=== PATIENT | female | born 1955 | race Caucasian/White ===

== ENCOUNTER 2017-07-19 21:08 | Inpatient (IN) | payer OTHER ==
[~2017-07-19] VITALS: Ht 175.3 cm; Wt 97.3 kg
[~2017-07-19 21:08] MED LIST: ADVIL200 M1 PO; BACTRIM DS TAB1 EACH PO; CYCLOBENZAPRINE5 MG PO; EFFEXOR XR150 MG PO; EFFEXOR XR75 MG PO; EXCEDRIN MIGRA1 EAC2 PO; LANTUS100 UNITS/ SUB-Q; LYRICA50 MG PO; LYRICA75 MG PO; METFORMIN HCL1000 MG PO; NORCO 10-325 T1 EACH PO; NOVOLIN R100 UNIT/1 INJ; NOVOLOG100 UNITS/ SUB-Q; VICODIN 5-3001 EACH PO
[2017-07-19] MEDS ORDERED: K-TAB ER20 MEQ PO (21:19)
[2017-07-19] MEDS ORDERED: LASIX20 MG PO (21:19)
[2017-07-20] MEDS ORDERED: NEURONTIN100 MG PO (01:32)
--- NOTE | 2017-07-20 19:00 | EKG ---
[facility] [address] [facility] [facility] [place] [address] Signed Sinus tachycardia Possible Left atrial enlargement Left axis deviation Anterolateral infarct , age undetermined Abnormal ECG No previous ECGs available Confirmed by ISIS SLOAN MD ([id number]) on 07/20/2017 7:00:38 PM Electronically Signed By: ISIS SLOAN MD 07/20/17 1900 PATIENT NAME: YOMAIRA TALLEY Electrocardiogram DATE OF : 53 PHYSICIAN: ISIS SLOAN MD REPORT #: [id number] REPORT IS CONFIDENTIAL AND NOT TO BE RELEASED WITHOUT AUTHORIZATION
[2017-07-23] MEDS ORDERED: CLEOCIN HCL300 MG PO (10:50)
[2017-07-23] MEDS ORDERED: KLOR-CON M1010 MEQ PO (10:51)
[2017-07-23] MEDS ORDERED: VENTOLIN HFA18 GM INH (10:52)
[2017-07-26] MEDS ORDERED: NOVOLOG100 UNIT/2 SUB-Q ×2 (21:16)
[2017-07-26] MEDS ORDERED: POTASSIUM CHLO20 ME1 PO (21:16)
[2017-07-26] MEDS ORDERED: LASIX40 MG PO (21:16)
[2017-07-26] MEDS ORDERED: CARVEDILOL3.125 MG PO (21:16)
[2017-07-27] MEDS ORDERED: ASPIRIN EC81 MG PO (10:07)
== END 2017-07-27 11:25 | disposition home or self-care (01) | DRG 292 ==
LOC: ED 21:08 → MS 07-20 00:42
PROVIDERS: ADMIT Internal Medicine
DX: I11.0 Hypertensive heart disease with heart failure (principal); N17.9 Acute kidney failure, unspecified; I50.23 Acute on chronic systolic (congestive) heart failure; E11.65 Type 2 diabetes mellitus with hyperglycemia; I35.0 Nonrheumatic aortic (valve) stenosis; E11.40 Type 2 diabetes mellitus with diabetic neuropathy, unspecified; E78.5 Hyperlipidemia, unspecified; F39 Unspecified mood [affective] disorder; F15.10 Other stimulant abuse, uncomplicated; Z79.4 Long term (current) use of insulin
CPT/HCPCS: 36415; 71020; 71260; 76770; 80048; 80053; 81001; 82570; 83735; 83880; 84300; 84484; 84540; 85025; 85379; 85610; 85730; 93005; 93010; 93306; 94640; 96374; 99285; J3475; Q0177; Q9967

== ENCOUNTER 2017-08-06 16:16 | Emergency (ER) | payer OTHER ==
[~2017-08-06] VITALS: Ht 175.3 cm; Wt 97.2 kg
[~2017-08-06 16:16] MED LIST changes: +ASPIRIN EC81 MG PO; +CARVEDILOL3.125 MG PO; +CLEOCIN HCL300 MG PO; +K-TAB ER20 MEQ PO; +KLOR-CON M1010 MEQ PO; +LASIX20 MG PO; +LASIX40 MG PO; +NEURONTIN100 MG PO; +NOVOLOG100 UNIT/2 SUB-Q; +POTASSIUM CHLO20 ME1 PO; +VENTOLIN HFA18 GM INH
[2017-08-06] MEDS ORDERED: BACTRIM DS TAB1 EACH PO (20:17)
[2017-08-06] MEDS ORDERED: CEPHALEXIN500 MG PO (20:17)
== END 2017-08-06 20:52 | disposition home or self-care (01) ==
LOC: ED 16:16
DX: L03.115 Cellulitis of right lower limb (principal); E11.9 Type 2 diabetes mellitus without complications; F32.9 Major depressive disorder, single episode, unspecified; Z90.49 Acquired absence of other specified parts of digestive tract; Z91.041 Radiographic dye allergy status; Z79.4 Long term (current) use of insulin; Z79.82 Long term (current) use of aspirin; Z79.899 Other long term (current) drug therapy; Z86.711 Personal history of pulmonary embolism
CPT/HCPCS: 80053; 81001; 83605; 83880; 85025; 96365; 96375; 99283; J0696; J3370

== ENCOUNTER 2018-08-24 23:42 | Emergency (ER) | payer OTHER ==
[~2018-08-24] VITALS: Ht 175.3 cm; Wt 99.9 kg
[~2018-08-24 23:42] MED LIST changes: +CEPHALEXIN500 MG PO
[2018-08-25] MEDS ORDERED: PERCOCET 5-3251 EACH PO (01:10)
== END 2018-08-25 01:59 | disposition home or self-care (01) ==
LOC: ED 23:42
DX: S42.211A Unspecified displaced fracture of surgical neck of right humerus, initial encounter for closed fracture (principal); E11.9 Type 2 diabetes mellitus without complications; F32.9 Major depressive disorder, single episode, unspecified; I50.9 Heart failure, unspecified; Z86.711 Personal history of pulmonary embolism; Z86.718 Personal history of other venous thrombosis and embolism; Z91.041 Radiographic dye allergy status; Z79.4 Long term (current) use of insulin; Z79.82 Long term (current) use of aspirin; Z79.899 Other long term (current) drug therapy; W01.0XXA Fall on same level from slipping, tripping and stumbling without subsequent striking against object, initial encounter
CPT/HCPCS: 73030; 96374; 96375; 99283-25; J1170; J2270; J2405

== ENCOUNTER 2018-11-25 11:59 | Emergency (ER) | payer OTHER ==
[~2018-11-25] VITALS: Ht 175.3 cm; Wt 99.9 kg
[~2018-11-25 11:59] MED LIST changes: +PERCOCET 5-3251 EACH PO
--- OUTSIDE RECORDS SUMMARY | 2018-11-25 12:02 | XMS ---
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 [place] VISIT COUNT (12 MO.) 2 [facility] Rendon TOTAL 2 NOTE: Visits indicate total known visits. ED/UCC VISIT TRACKING (12 MO.) 11/25/2018 11:59 [facility] [place] TYPE: Emergency COMPLAINT: - CHEST PRESSURE/SHORTNESS OF BREATH 08/24/2018 23:[address] 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 - [facility] (current) use of aspirin - Unspecified displaced fracture of surgical neck of right humerus, initial encounter for closed fracture - Personal history of other venous thrombosis and embolism - Pain in right knee - Heart failure, unspecified - Major depressive disorder, single episode, unspecified - Fall on same level from slipping, tripping and stumbling without subsequent striking against object, initial encounter - Radiographic dye allergy status - Type 2 diabetes mellitus without complications INPATIENT VISIT TRACKING (12 MO.) No inpatient visits to display in this time frame [email or web address]
[2018-11-25] MEDS ORDERED: NOVOLOG MI100 UNIT/2 SUB-Q (12:23)
[2018-11-25] MEDS ORDERED: LEVEMIR FL100 UNIT/2 SQ (12:24)
[2018-11-25] MEDS ORDERED: MAGNESIUM250 MG PO (15:26)
--- NOTE | 2018-11-26 23:18 | EKG ---
[facility] [address] [place] [address] Signed Sinus rhythm with frequent premature ventricular complexes and premature atrial complexes Left axis deviation Left ventricular hypertrophy with QRS widening and repolarization abnormality Cannot rule out Septal infarct (cited on or before 19-JUL-2017) Abnormal ECG When compared with ECG of 19-JUL-2017 21:16, premature ventricular complexes are now present premature atrial complexes are now present Questionable change in initial forces of Anterolateral leads Confirmed by PADMAJA CAMACHO DO ([id number]) on 11/26/2018 11:18:43 PM Electronically Signed By: PADMAJA CAMACHO DO 11/26/18 2318 PATIENT NAME: YOMAIRA TALLEY Electrocardiogram DATE OF : 53 PHYSICIAN: PADMAJA CAMACHO DO REPORT #: [id number] REPORT IS CONFIDENTIAL AND NOT TO BE RELEASED WITHOUT AUTHORIZATION
== END 2018-11-25 15:48 | disposition home or self-care (01) ==
LOC: ED 11:59
DX: E87.6 Hypokalemia (principal); E83.42 Hypomagnesemia; E11.9 Type 2 diabetes mellitus without complications; F32.9 Major depressive disorder, single episode, unspecified; I50.9 Heart failure, unspecified; Z91.041 Radiographic dye allergy status; Z79.899 Other long term (current) drug therapy; Z79.82 Long term (current) use of aspirin
CPT/HCPCS: 71046; 80053; 83735; 83880; 84484; 85025; 93005; 93010; 96365; 99285-25; J3475

== ENCOUNTER 2019-04-24 15:58 | Emergency (ER) | payer OTHER ==
[~2019-04-24] VITALS: Ht 175.3 cm; Wt 99.9 kg
[~2019-04-24 15:58] MED LIST changes: +LEVEMIR FL100 UNIT/2 SQ; +MAGNESIUM250 MG PO; +NOVOLOG MI100 UNIT/2 SUB-Q
--- OUTSIDE RECORDS SUMMARY | 2019-04-24 16:02 | XMS ---
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 Care History Medical/Surgical 11/26/2018 [facility] MADE- FOR FURTHER HELP- WITH DIRECTOR OF RESTAURANTS TO HELP PATIENT. [place] VISIT COUNT (12 MO.) 3 [facility] TOTAL 3 NOTE: Visits indicate total known visits. 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
[2019-04-24] MEDS ORDERED: KEFLEX500 MG PO (18:12)
[2019-04-24] MEDS ORDERED: BACTRIM DS TAB1 EACH PO (18:12)
== END 2019-04-24 18:31 | disposition home or self-care (01) ==
LOC: ED 15:58
DX: L03.116 Cellulitis of left lower limb (principal); E11.9 Type 2 diabetes mellitus without complications; I50.9 Heart failure, unspecified; Z91.041 Radiographic dye allergy status; Z86.711 Personal history of pulmonary embolism; Z79.4 Long term (current) use of insulin; Z79.82 Long term (current) use of aspirin; Z79.899 Other long term (current) drug therapy
CPT/HCPCS: 99283

== ENCOUNTER 2019-07-12 18:20 | Emergency (ER) | payer MEDICARE, OTHER ==
[~2019-07-12] VITALS: Ht 175.3 cm; Wt 99.9 kg
[~2019-07-12 18:20] MED LIST changes: +KEFLEX500 MG PO
--- OUTSIDE RECORDS SUMMARY | 2019-07-12 18:22 | XMS ---
PreManage Notification: YOMAIRA TALLEY Security Ac/Dc Rewinder Events No recent Security Events currently on file CRITERIA MET - [facility] [place] [facility] CARE PROVIDERS MAMIE BISWAS Physician 11/26/2018-Current PHONE: [phone] DG TALLEY Primary Care Current PHONE: [phone] PARAMJIT Marie Primary Care Current PHONE: [phone] Lucy Webster Current PHONE: Unknown [facility] Other [facility] PHONE: Unknown Maria Guadalupe has no Care Guidelines for this patient. Care History Medical/Surgical 11/26/2018 [facility] MADE- FOR FURTHER HELP- WITH LOG DECK TENDER TO HELP PATIENT. [place] VISIT COUNT (12 MO.) 4 [facility] TOTAL 4 NOTE: Visits indicate total known visits. ED/UCC VISIT TRACKING (12 MO.) 07/12/2019 18:20 [facility] [place] TYPE: Emergency COMPLAINT: - CHEST PAIN 04/24/2019 15:[address] [facility] [place] TYPE: Emergency COMPLAINT: - POSSIBLE LEG INFECTION DIAGNOSES: - Heart failure, unspecified - Radiographic dye allergy status - assisted (current) use of aspirin - Personal history of pulmonary embolism - Other halfway (current) drug therapy - Pain in right lower leg - 1 Type 2 diabetes mellitus without complications - Cellulitis of left lower limb - assisted (current) use of insulin 11/25/2018 11:59 [facility] [place] [place] COMPLAINT: - CHEST PRESSURE/SHORTNESS OF BREATH DIAGNOSES: - 1 Type 2 diabetes mellitus without complications - Heart failure, unspecified - Other chest pain - Hypomagnesemia - Radiographic dye allergy status - Hypokalemia - assisted (current) use of aspirin - Major depressive disorder, single episode, unspecified - Other halfway (current) drug therapy 08/24/2018 23:[address] 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
--- NOTE | 2019-07-14 12:51 | EKG ---
[facility] [address] [facility] [place] [address] Signed Sinus rhythm with frequent premature ventricular complexes in a pattern of bigeminy Left axis deviation Left bundle branch block Cannot rule out septal infarct Abnormal ECG When compared with ECG of 25-NOV-2018 12:08, premature atrial complexes are no longer present Left bundle branch block is now present Confirmed by ISIS SLOAN MD ([id number]) on 07/14/2019 12:50:54 PM Electronically Signed By: ISIS SLOAN MD 07/14/19 1251 PATIENT NAME: YOMAIRA TALLEY Electrocardiogram DATE OF : 53 PHYSICIAN: ISIS SLOAN MD REPORT #: [id number] REPORT IS CONFIDENTIAL AND NOT TO BE RELEASED WITHOUT AUTHORIZATION
== END 2019-07-12 23:06 | disposition short-term general hospital (02) ==
LOC: ED 18:20
DX: I20.0 Unstable angina (principal); E11.9 Type 2 diabetes mellitus without complications; F32.9 Major depressive disorder, single episode, unspecified; I50.9 Heart failure, unspecified; Z91.041 Radiographic dye allergy status; Z79.899 Other long term (current) drug therapy; Z79.4 Long term (current) use of insulin
CPT/HCPCS: 71045; 80053; 83735; 84484; 85025; 85610; 85730; 93005; 93010; 96374; 96375; 96376; 99285-25; J1644; J1815; J2270; J2405

== ENCOUNTER 2020-03-11 20:12 | Emergency (ER) | payer MEDICARE, OTHER ==
[~2020-03-11] VITALS: Ht 175.3 cm; Wt 95.4 kg
--- OUTSIDE RECORDS SUMMARY | 2020-03-11 20:14 | XMS ---
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 Care History Medical/Surgical 11/26/2018 [facility] - [place] CASE MANAGEMENT REFERRAL MADE- FOR FURTHER HELP- WITH RISK DEVELOPER TO HELP PATIENT. [place] VISIT COUNT (12 MO.) 1 [facility] 4 [facility] TOTAL 5 NOTE: Visits indicate total known visits. ED/UCC VISIT TRACKING (12 MO.) 03/11/2020 20:12 [facility] [place] TYPE: Emergency COMPLAINT: - [facility] DIAGNOSES: - Bitten by dog, initial encounter - Open bite of left ear, initial encounter - Dog Bite(s) 07/17/2019 17:19 [facility] [place] TYPE: Emergency COMPLAINT: - DOG BITE DIAGNOSES: - USP (current) use of insulin - Open bite of left ear, initial encounter - Bitten by dog, initial encounter - Other correction (current) drug therapy - Type 2 diabetes mellitus with hyperglycemia - USP (current) use of aspirin - Heart failure, unspecified - Non-ST elevation (NSTEMI) myocardial infarction - Open bite of left ear, initial encounter - Radiographic dye allergy status 07/12/2019 18:20 [facility] [place] TYPE: Emergency COMPLAINT: - CHEST PAIN DIAGNOSES: - 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 - Other correction (current) drug therapy - Major depressive disorder, single episode, unspecified - Heart failure, unspecified - Unstable angina - Type 2 diabetes mellitus without complications - Radiographic dye allergy status - Chest pain, unspecified 04/24/2019 15:59 [facility] [place] TYPE: Emergency COMPLAINT: - POSSIBLE LEG INFECTION DIAGNOSES: - Heart failure, unspecified - Radiographic dye allergy status - USP (current) use of aspirin - Personal history of pulmonary embolism - Other correction (current) drug therapy - Pain in right lower leg - Type 2 diabetes mellitus without complications - Cellulitis of left lower limb - USP (current) use of insulin INPATIENT VISIT TRACKING (12 MO.) 07/13/2019 00:29 [facility] TYPE: Internal Medicine DIAGNOSES: - Type 2 diabetes mellitus with hyperglycemia - Non-ST elevation (NSTEMI) myocardial infarction - Other stimulant abuse, uncomplicated - Hyperlipidemia, unspecified - Unstable Angina - USP (current) use of insulin - Atherosclerotic heart disease of [place] coronary artery with [email or web address]
== END 2020-03-12 00:26 | disposition home or self-care (01) ==
LOC: ED 20:12
DX: K52.9 Noninfective gastroenteritis and colitis, unspecified (principal); E11.9 Type 2 diabetes mellitus without complications; F32.9 Major depressive disorder, single episode, unspecified; I50.9 Heart failure, unspecified; Z91.041 Radiographic dye allergy status; Z79.4 Long term (current) use of insulin
CPT/HCPCS: 80053; 81001; 83690; 83735; 85025; 96361; 96374; 96375; 96376; 99284-25; J2405; J2550; J2765; J7030

== ENCOUNTER 2020-03-23 19:10 | Emergency (ER) | payer MEDICARE, OTHER ==
[~2020-03-23] VITALS: Ht 175.3 cm; Wt 95.4 kg
--- OUTSIDE RECORDS SUMMARY | 2020-03-23 19:12 | XMS ---
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 Care History Medical/Surgical 11/26/2018 [facility] - [place] CASE MANAGEMENT REFERRAL MADE- FOR FURTHER HELP- WITH YEAST CULTURE DEVELOPER TO HELP PATIENT. [place] VISIT COUNT (12 MO.) 1 [place] [address] DANIEL Rendon TOTAL 6 NOTE: Visits indicate total known visits. ED/UCC VISIT TRACKING (12 MO.) 03/23/2020 19:11 [facility] [place] TYPE: Emergency COMPLAINT: - SWOLLEN/REDNESS IN BOTH FEET 03/11/2020 20:12 [facility] [place] TYPE: Emergency COMPLAINT: - VOMITING DIAGNOSES: - Nausea with vomiting, unspecified - Noninfective gastroenteritis and colitis, unspecified - Major depressive disorder, single episode, unspecified - Heart failure, unspecified - Radiographic dye allergy status - Type 2 diabetes mellitus without complications - assisted (current) use of insulin 07/17/2019 22:15 [facility] TYPE: Emergency DIAGNOSES: - Bitten by dog, initial encounter - Open bite of left ear, initial encounter - Dog Bite(s) 07/17/2019 17:19 [facility] TYPE: Emergency COMPLAINT: - DOG BITE DIAGNOSES: - assisted (current) use of insulin - Open bite of left ear, initial encounter - Bitten by dog, initial encounter - Other residential (current) drug therapy - Type 2 diabetes mellitus with hyperglycemia - assisted (current) use of aspirin - Heart failure, unspecified - Non-ST elevation (NSTEMI) myocardial infarction - Open bite of left ear, initial encounter - Radiographic dye allergy status 07/12/2019 18:20 [facility] TYPE: Emergency COMPLAINT: - CHEST PAIN DIAGNOSES: - assisted (current) use of insulin - 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 - Major depressive disorder, single episode, unspecified - Heart failure, unspecified - Unstable angina - Type 2 diabetes mellitus without complications - Radiographic dye allergy status - Chest pain, unspecified 04/24/2019 15:59 [facility] [place] TYPE: Emergency COMPLAINT: - POSSIBLE LEG INFECTION DIAGNOSES: - Heart failure, unspecified - Radiographic dye allergy status - 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 - Personal history of pulmonary embolism - Other residential (current) drug therapy - Pain in right lower leg - Type 2 diabetes mellitus without complications - Cellulitis of left lower limb - assisted (current) use of insulin INPATIENT VISIT TRACKING (12 MO.) 07/13/2019 00:29 [facility] TYPE: Internal Medicine DIAGNOSES: - Type 2 diabetes mellitus with hyperglycemia - Non-ST elevation (NSTEMI) myocardial infarction - Other stimulant abuse, uncomplicated - Hyperlipidemia, unspecified - Unstable Angina - 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
[2020-03-23] MEDS ORDERED: TORSEMIDE5 MG PO (19:34)
[2020-03-23] MEDS ORDERED: EFFEXOR XR150 MG PO (19:34)
[2020-03-23] MEDS ORDERED: NITROSTAT0.4 MG SL (19:35)
[2020-03-23] MEDS ORDERED: MAGNESIUM500 MG PO (19:35)
[2020-03-23] MEDS ORDERED: GABAPENTIN100 MG PO (19:35)
[2020-03-23] MEDS ORDERED: KEFLEX500 MG PO (21:00)
[2020-03-23] MEDS ORDERED: BACTRIM DS TAB1 EACH PO (21:00)
== END 2020-03-23 23:07 | disposition home or self-care (01) ==
LOC: ED 19:10
DX: L03.115 Cellulitis of right lower limb (principal); L03.116 Cellulitis of left lower limb; D72.829 Elevated white blood cell count, unspecified; R79.9 Abnormal finding of blood chemistry, unspecified; E11.9 Type 2 diabetes mellitus without complications; F32.9 Major depressive disorder, single episode, unspecified; I25.10 Atherosclerotic heart disease of native coronary artery without angina pectoris; I50.9 Heart failure, unspecified; Z91.041 Radiographic dye allergy status; Z79.899 Other long term (current) drug therapy; Z79.4 Long term (current) use of insulin
CPT/HCPCS: 73630; 80053; 85025; 96361; 96374; 99283-25; A9270; J3370; J7030; J7060

== ENCOUNTER 2020-09-06 16:31 | Emergency (ER) | payer MEDICARE, OTHER ==
[~2020-09-06] VITALS: Ht 175.3 cm; Wt 97.7 kg
[~2020-09-06 16:31] MED LIST changes: +GABAPENTIN100 MG PO; +MAGNESIUM500 MG PO; +NITROSTAT0.4 MG SL; +TORSEMIDE5 MG PO
[2020-09-06] MEDS ORDERED: BYDUREON B2 MG/0.85 (16:57)
[2020-09-06] MEDS ORDERED: K-TAB ER20 MEQ PO (19:39)
[2020-09-06] MEDS ORDERED: LASIX20 MG PO (19:39)
== END 2020-09-06 20:28 | disposition home or self-care (01) ==
LOC: ED 16:31
DX: I50.9 Heart failure, unspecified (principal); Z91.19 Patient's noncompliance with other medical treatment and regimen; E11.9 Type 2 diabetes mellitus without complications; Z91.041 Radiographic dye allergy status; Z79.899 Other long term (current) drug therapy; Z79.4 Long term (current) use of insulin
CPT/HCPCS: 80053; 83735; 83880; 85025; 96374; 96375; 99285-25; J1940; J3475

== ENCOUNTER 2020-09-19 05:12 | Emergency (ER) | payer MEDICARE, OTHER ==
[~2020-09-19] VITALS: Ht 175.3 cm; Wt 97.5 kg
[~2020-09-19 05:12] MED LIST changes: +BYDUREON B2 MG/0.85
--- OUTSIDE RECORDS SUMMARY | 2020-09-19 05:14 | XMS ---
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 Care History Medical/Surgical 03/24/2020 [facility] \T\middot;\T\nbsp; PATIENT WOULD BENEFIT FROM [facility]-PLEASE DISCUSS \T\middot;\T\nbsp; PLEASE CONTACT [facility]- IF PATIENT ACCEPTS SERVICES- [phone] \T\middot;\T\nbsp; [facility] CAN PROVIDE PATIENT WITH COIN PURSE FRAMER AND HELP WITH COMMUNITY RESOURCES 11/26/2018 [facility] - [place] CASE MANAGEMENT REFERRAL MADE- FOR FURTHER HELP- WITH RESTAURANT WORKER TO HELP PATIENTLazara Jenkins VISIT COUNT (12 MO.) 2 [facility] 6 NOTE: Visits indicate total known visits. 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 - Radiographic dye allergy status - Type 2 diabetes mellitus without complications - retirement (current) use of insulin - Patient's noncompliance with other medical treatment and regimen 03/25/2020 22:25 [facility] [place] TYPE: Emergency DIAGNOSES: - Cellulitis of left lower limb - BILAT FOOT INFECTION 03/23/2020 19:11 [facility] [place] TYPE: Emergency COMPLAINT: - SWOLLEN/REDNESS IN BOTH FEET DIAGNOSES: - Cellulitis of left lower limb - Atherosclerotic heart disease of [place] coronary artery without angina pectoris - 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 - Heart failure, unspecified - Radiographic dye allergy status - Elevated white blood cell count, unspecified - Type 2 diabetes mellitus without complications - Other senior living (current) drug therapy - Major depressive disorder, single episode, unspecified - Pain in right foot - Abnormal finding of blood chemistry, unspecified - Cellulitis of right lower limb 03/11/2020 20:12 [facility] [place] TYPE: Emergency COMPLAINT: - VOMITING DIAGNOSES: - Nausea with vomiting, unspecified - Noninfective gastroenteritis and colitis, unspecified - Major depressive disorder, single episode, unspecified - Heart failure, unspecified - Radiographic dye allergy status - Type 2 diabetes mellitus without complications - retirement (current) use of insulin INPATIENT VISIT TRACKING (12 MO.) No inpatient visits to display in this time frame [email or web address]
[2020-09-19] MEDS ORDERED: CLINDAMYCIN HC300 MG PO (05:21)
[2020-09-19] MEDS ORDERED: HYDROCODON-ACE1 EA10 PO (05:21)
== END 2020-09-19 08:40 | disposition short-term general hospital (02) ==
LOC: ED 05:12
DX: I99.8 Other disorder of circulatory system (principal); L03.115 Cellulitis of right lower limb; L03.116 Cellulitis of left lower limb; E11.621 Type 2 diabetes mellitus with foot ulcer; L97.519 Non-pressure chronic ulcer of other part of right foot with unspecified severity; I25.10 Atherosclerotic heart disease of native coronary artery without angina pectoris; I50.9 Heart failure, unspecified; Z20.822 Contact with and (suspected) exposure to COVID-19; Z79.899 Other long term (current) drug therapy; Z79.4 Long term (current) use of insulin
CPT/HCPCS: 80053; 81001; 83605; 85025; 93931; 93971; 99285-25; C9803; J1644; J2270; J3370; J7060; U0003

== ENCOUNTER 2021-01-14 15:19 | Inpatient (IN) | payer MEDICARE, OTHER, MEDICAID ==
[~2021-01-14] VITALS: Ht 175.3 cm; Wt 97.9 kg
[~2021-01-14 15:19] MED LIST changes: -BYDUREON B2 MG/0.85; +BYDUREON B2 MG/0.85 SUB-Q; +CLINDAMYCIN HC300 MG PO; +HYDROCODON-ACE1 EA10 PO
[2021-01-14] MEDS ORDERED: ELIQUIS5 MG PO (15:37)
[2021-01-14] MEDS ORDERED: HYDRALAZINE HCL10 MG PO (15:37)
[2021-01-14] MEDS ORDERED: METOPROLOL SUCC25 MG PO (15:37)
[2021-01-14] MEDS ORDERED: ISOSORBIDE DINI20 MG PO (15:38)
--- NOTE | 2021-01-14 19:59 | NUR ---
iSitting at beds edge. restless, fidgetty, follows instructions slow response. rapid hand movements. ffixating on le. On room air. flagyl started. Coop with admit questiona and assessment, tolerating liquids and crackers. denies needing to go to br. LE edema, scabs prsent open areas r toe, edema of bilat LE and anckle
--- NOTE | 2021-01-14 23:52 | NUR ---
pt very restless, dry heaving, moist skin, moaning, fidgety, CIWA score 8, medicated with Ativan 1mg po. reassured, redirectable. on O2 increased to 2L NC at this time, spot checks O2 90%, R24, P118, sats went up to 94% on 2L. continue to observe for s/sx drug withdrawal.
--- NOTE | 2021-01-15 01:40 | NUR ---
O2 on, resting, no distress, eyes closed. no c/o adverse reaction to abx. med effective
--- NOTE | 2021-01-15 02:43 | NUR ---
Up to br, voided, unsteady gait, O2 took off, back on, coop with assessment and vitals, c/o h/a, medicated , less fidgety, light diaphoresis head and face, fine hand tremors still present, no dry heaving, tolerating ice chips and fluids well. uses call light. pt continues to deny that she used drugs at all, not for several months now
--- NOTE | 2021-01-15 03:48 | NUR ---
RESTING, NO DISTRESS, EYES CLOSED, O2 2L NC, LIQUIDS AND CALL LIHGT AT HAND REACH, INVOLUNTARY HANDS TREMORS PRESENT
--- NOTE | 2021-01-15 05:58 | NUR ---
Pt on 2LNC,, currently resting, no distress, has received flagyl, cefepime, vancomycin abdx, tolerated well. 2SL. was medicated with percocet per c/o h/a and r leg pain. R leg red and warm to touch. has scrathced areas in different stages of heling, edematous, r rip of toe with opld scab. edema to L foot too. scabbed over areas over arm. L abd and both legs. . Was very fidgetty and anxious at begining of shift and mid way. CIWA score was 8, received ativan 1mg po. effective. pt denies doing drugs or drinking alcohol for several months. was very diaphoretic, irritable, could not thick. calmed down. Up to bsc at begining of shift walked w/o problems tender R leg. BSC was used later as she was bending down, not following instructions. fidgetty and impulsive, unsteady gait present at that time. 1-2pa. has voided QS. bed alarm on for sagety. cont to observe and elevate legs
[2021-01-15] MEDS ORDERED: TORSEMIDE20 MG PO (08:21)
[2021-01-15] MEDS ORDERED: ATORVASTATIN CA40 MG PO (08:21)
[2021-01-15] MEDS ORDERED: POTASSIUM CHLO10 ME1 PO (09:37)
--- NOTE | 2021-01-15 11:44 | NUR ---
Patient resting in bed, respirations even and non labored. No notable distress. Bed alarm intact. Encouraged patient to elevate legs to help reduce swelling.
[2021-01-15] MEDS ORDERED: NOVOLOG FL100 UNIT/1 SUB-Q (12:25)
[2021-01-15] MEDS ORDERED: TORSEMIDE10 MG PO (12:26)
[2021-01-15] MEDS ORDERED: VENTOLIN HFA18 GM INH (12:26)
--- NOTE | 2021-01-15 12:27 | NUR ---
MED REC COMPLETE
--- NOTE | 2021-01-15 13:38 | NUR ---
Patient resting in bed, respirations even and non labored. Patient is on room air at this time, sat level 96%. No distress, personal supplies and call light within reach.
--- NOTE | 2021-01-15 14:12 | NUR ---
CAME IN TO CHECK PATIENTS VITALS AND SHE STATED SHE HAD A HEADACHE, HER OXYGEN WAS AT 86% ON ROOM AIR. I PUT HER BACK ON 2L. WILL LET THE NURSE KNOW ABOUT HER HEADACHE.
--- NOTE | 2021-01-15 14:27 | NUR ---
One tab [place] 5/325mg admin for reports of 5/10 bilat lower ext leg pain.
--- NOTE | 2021-01-15 16:53 | NUR ---
DID HER BLOOD SUGAR CHECK FOR BREAKFAST, LUNCH AND DINNER. SHE WOULD LIKE TO TAKE A SHOWER BUT I WILL CHECK BACK AFTER DINNER.
--- NOTE | 2021-01-15 17:33 | NUR ---
Patient resting in bed, eyes closed, respirations even and non labored. Patient has no needs. Personal supplies and call light within reach.
--- NOTE | 2021-01-15 20:04 | NUR ---
on 2L NC, lungs clear xcept LLL with faint crackles. no c/o SOB, showered earlir. scabbs over legs arms and abd, softer. RLLerythema and edema improved, scabbed over areas moist with scant amount of drainage serous. elevated. R big toe no changes. 1+ pitting. tender. L Leg improved edema. 2SL paten. showered, comfortable, watching tv, fresh ice chips and fluids given, no c/o pain. alert and oriented at this time
--- NOTE | 2021-01-15 22:01 | NUR ---
Showered at begining of shift. voided, no bm, back to bed, LE elevated, decresaed redness and erythema of R leg. c/o h/a, medicated, CBG 82 asymptomatic. crackers, peanut butter and puding given, declines OJ or milk. IV abx infusing. cooperative, O2 2LNC
--- NOTE | 2021-01-16 00:13 | NUR ---
AWAKES EASILY, NO C/O ADVERSE REACTION TO ABX. SL PATENT. ON 2LNC. LEGS ELEVATED
--- NOTE | 2021-01-16 01:29 | NUR ---
FIDGETTY, RESTLESS, ALERT AND ORIENTED. ANXIOUS. LEGS DANGLING, ENCOURAGED TO ELEVATE LEGS. IV ABX INFUSING, MEDICATED WITH VISTARIL
--- NOTE | 2021-01-16 02:36 | NUR ---
RESTING, O2 2L INPLACE, LEGS ELEVATED, COMFORTABLE
--- NOTE | 2021-01-16 05:10 | NUR ---
PT HAS SLEPT, CALMER, NO DISTRESS. O2 2L NC. 2 SL PATENT, NO C/O ADVERSE REACTION TO IV ABX. WAS MEDICATED PER C/O H/A AND PER ANXIETY, EFFECTIVE. SHOWERED AT BEGINING OF SHIFT LEGS IMPROVED EDEMA AND DECREAE REDNESS OF R LEG, SCABBED AREAS OVER ARMS, L ABD, LEGS IMPROVING. R BIG TOE AND AREA UNDER TOES NO CHANGES. WRAPPED TO AT HER REQUESTS, USES WALKING SHOE WHEN UP. VOIDING QS AND TOLERATING LIQUIDS AND ICE WELL. CBG 82 AT BEGINIG OF SHIFT, SNACKS IVEN SHE DECLINED OJ AND MILK. RETAKEN AND CBG WAS 128 A COUPLE HOURS LATER. NO C/O HYPOGLYCEMIA. ALERT, COOPERATIVE
--- NOTE | 2021-01-16 07:20 | NUR ---
REPORT RECEIVED. PT LYING IN BED WITH EYES CLOSED. RESPIRATIONS EQUAL AND NONLABORED. CALL LIGHT IN REACH.
--- NOTE | 2021-01-16 08:44 | NUR ---
PT RESTING IN BED WITH EYES CLOSED. WARM BLANKET GIVEN, WHITE BOARD UPDATED. CALL LIGHT WITHIN REACH. NO FURTHER NEEDS AT THIS TIME.
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
--- NOTE | 2021-01-16 11:40 | NUR ---
CALL MADE TO WOUND CARE NURSE CAPO REYNOLDS TO DISCUSS WOUNDS ON PT FOOT. WOUNDS TO RIGHT GREAT TOE IS WITH STABAL ESCAR. IT WAS RECOMMENDED TO PAINT WITH BETADINE. WOUND ON R FOOT ON THE PLANTAR SURFACE IS WITH NON-GRANULATING TISSUE IN THE BASE, WOUND EDGES ARE TAPERING INWARD AND CURLING. NO REDNESS NOTED ON JACINTO-WOUND. COLLAGEN PACKING IS RECOMMENDED WITH FOAM DRESSING OVER TOP. NURSE TO WRITE DRESSING CHANGE ORDERS.
--- NOTE | 2021-01-16 11:46 | NUR ---
VERBAL WOUND CONSULT COMPLETED WITH GULSHAN ESCALANTE RN, WHOM IS TRAINING TO BECOME CERTIFIED IN WOUND CARE. THE PT HAS A WOUND ON THE RIGHT BIG TOE WITH STABLE ESCHAR, THIS IS OK TO KEEP OPEN TO AIR AND PAINT WITH BETADINE. THERE IS ALSO A WOUND ON THE BOTTOM OF THE RIGHT FOOT WITH CLEAN, NON-GRANULATING TISSUE. THERE IS NO DRAINAGE. IT IS RECOMMENDED TO PUT COLLAGEN IN THE WOUND BED AND THEN COVERE WITH AN ADHESIVE FOAM DRESSING. CHANGE EVERY 3 TO 4 DAYS OR NEEDED.
--- NOTE | 2021-01-16 14:30 | NUR ---
DR SLOAN IN TO ROUND AND DISCUSS PLAN OF CARE.
--- NOTE | 2021-01-16 14:37 | NUR ---
DRESSING CHANGE COMPLETED PER WOUND NURSE ORDERS. BETADINE APPLIED TO STABLE ESCAR ON RIGHT TOE. COVERED WITH GAUZE AND COBAN TO PROTECT. COLLAGEN PLACED IN PLANTAR FOOT WOUND AND COVERED WITH FOAM DRESSING. WRAPPED IN GUAZE AND COBAN TO PROTECT. PT TOLERATED WELL WITH NO PAIN.
--- NOTE | 2021-01-16 16:00 | NUR ---
ROUNDED ON PT. PT FOUND IN BED SNOREING. LYING ON RIGHT SIDE. PT LEFT UNDISTURBED. CALL LIGHT IN REACH.
--- NOTE | 2021-01-16 17:45 | NUR ---
PT AE 40% OF DINNER. ALL INSULIN HELD. PT FALLS RIGHT BACK ASLEEP AFTER EATING. RESPIRATIONS EQUAL AND NON LABORED. CALL LIGHT IN REACH.
--- NOTE | 2021-01-16 18:05 | EKG ---
[facility] [address] [facility] [place] [address] Signed Normal sinus rhythm Left axis deviation Left bundle branch block Abnormal ECG When compared with ECG of 12-JUL-2019 18:23, premature ventricular complexes are no longer present QRS voltage has decreased Nonspecific T wave abnormality now evident in Anterior leads Confirmed by ISIS SLOAN MD ([id number]) on 01/16/2021 6:05:00 PM Electronically Signed By: ISIS SLOAN MD 01/16/21 1805 PATIENT NAME: YOMAIRA TALLEY Electrocardiogram DATE OF : 53 PHYSICIAN: ISIS SLOAN MD REPORT #: [id number] REPORT IS CONFIDENTIAL AND NOT TO BE RELEASED WITHOUT AUTHORIZATION
--- NOTE | 2021-01-16 19:55 | NUR ---
REPORT RECEIVED FROM DAY SHIFT RN. PT LYING IN BED RESTING WITH EYES CLOSED. RESPIRATIONS EVEN. WHITE BOARD UPDATED. CALL LIGHT IN REACH. BED ALARM FOR SAFETY.
--- NOTE | 2021-01-16 22:30 | NUR ---
PT DROWSY BUT AWAKENS EASILY TO VERBAL STIMULI. ALERT AND ORIENTED. EVENING ASSESSMENT COMPLETE. SCHEDULED MEDS ADMINISTERED PER EMAR. PT DENIES PAIN OR NAUSEA. DRESSING TO BOTTOM RIGHT FOOT INTACT. PT DENIES QUESTIONS OR CONCERNS. WARM BLANKET PROVIDED. BED ALARM FOR SAFETY.
--- NOTE | 2021-01-16 23:50 | NUR ---
BED ALARM WENT OFF. PATIENT WAS SITTING ON THE EDGE OF THE BED FIXING BOOT READY TO GET UP TO THE BATHROOM. SBA. PATIENT VOIDED. PATIENT IS BACK IN BED. NO OTHER NEEDS AT THIS TIME. CALL LIGHT WITHIN REACH. BED ALARM ON FOR SAFETY.
--- NOTE | 2021-01-17 01:10 | NUR ---
PT RESTING IN BED WITH EYES CLOSED, NAD.
--- NOTE | 2021-01-17 03:36 | NUR ---
IN TO ROUND ON PT. PT SITTING ON SIDE OF BED. SBA TO BR WITH WALKING BOOT ON RIGHT FOOT. GAIT UNSTEADY AT TIMES. BACK TO BED, TESSIE WELL. DENIES FURTHER NEEDS. CALL LIGHT IN REACH. BED ALARM FOR SAFETY.
--- NOTE | 2021-01-17 05:45 | NUR ---
PT RESTING IN BED WITH EYES CLOSED. RESPIRATIONS EVEN. CALL LIGHT IN REACH.
--- NOTE | 2021-01-17 07:48 | NUR ---
REPORT RECIEVED. PT LYING IN BED WITH EYES CLOSED. ON RA, RESPITATIONS EQUAL AND NONLABORED. CALL LIGHT IN REACH.
--- NOTE | 2021-01-17 09:30 | NUR ---
PT FOUND SLEEPING IN BED. PT AWAKES EASILY TO VERBAL STIMULI. PT IS ORIENTED. ADMINSTERS MEDICATIONS AND VITALS TAKEN. PT DENIES PAIN. CALL LIGHT IN REACH.
--- NOTE | 2021-01-17 10:42 | NUR ---
SET PT UP FOR SHOWER. PT TO SHOWER INDEPEDENLY AND CALL WHEN COMPLETED.
--- NOTE | 2021-01-17 14:56 | NUR ---
PHYSICAL THERAPY WORKING WITH PT.
--- NOTE | 2021-01-17 15:01 | NUR ---
PT ALERT, ORIENTED AND SITTING UP IN BED WATCHING TV. PT IS BOTHERED BY SOME- WHAT OF A CHRONIC CELLULITIS CONDITION. HAD GOOD VISIT, GAVE ENCOOURAGEMENT AND BLESSING ALONG WITH G.POST. WILL FOLLOW NEEDED
--- NOTE | 2021-01-17 15:08 | NUR ---
PER MD UPDATE PATIENT TO REMAIN ADMITTED TODAY. NO CHANGES IN DISCHARGE PLAN AT THIS TIME. WILL CONTINUE TO FOLLOW UP WITH PATIENT.
--- NOTE | 2021-01-17 17:39 | NUR ---
RECHECKED PATIENTS BLOOD SUGAR AT EXACT TIME OF RN'S REQUEST. SUGAR WAS 46, ONLY UP ONE FROM THE ORIGIANL SUGAR OF 45. CHARGE NURSE NOTIFIED.
--- NOTE | 2021-01-17 18:48 | NUR ---
PT WITH BLOOD SUGAR OF 46. PT REPORTED HAVING A HEADACHE. PT WAS ABLE TO EAT. DR SLOAN NOTIFIED. OKAY TO GIVE JUICE, CRACKERS AND PEANUT BUTTER TO PT. BLOOD SUGAR RECEHCKED IN [address] SLOAN NOTIFIED AND ORDERD TO GIVE D50 IV. 15 MINUTE BLOOD SUGAT WAS 146. PT ATE 95% OF DINNER. DR SLOAN AWARE.
--- NOTE | 2021-01-17 19:43 | NUR ---
REPORT RECEIVED FROM DAY SHIFT RN. PT LYING IN BED RESTING WITH EYES CLOSED, NAD. WHITE BOARD UPDATED. CALL LIGHT IN REACH.
--- NOTE | 2021-01-17 22:00 | NUR ---
EVENING ASSESSMENT COMPLETE. SCHEDULED MEDS ADMINISTERED PER EMAR. PRN FOR PAIN ADMINISTERED FOR LEFT SHOULDER PAIN. INSULIN ADMINISTERED PER SLIDING SCALE. RLE EDEMA NOTED. DRESSING INTACT TO BOTTOM OF RIGHT FOOT. PT DENIES FURTHER NEEDS. CALL LIGHT IN REACH.
--- NOTE | 2021-01-17 22:36 | NUR ---
CALL LIGHT ANSWERED. PT UP TO BR WITH SBA AND FWW. WALKING BOOT TO RIGHT FOOT. GAIT STEADY. BACK TO BED, TESSIE WELL.
--- NOTE | 2021-01-18 01:16 | NUR ---
CALL LIGHT ANSWERED. PT UP TO BR WITH SBA AND RIGHT WALKING BOOT TO VOID. GAIT STEADY. BACK TO BED, TESSIE WELL.
--- NOTE | 2021-01-18 04:01 | NUR ---
PT RESTING IN BED WITH EYES CLOSED LYING ON RIGHT SIDE. RESPIRATIONS EVEN. NO APPARENT DISTRESS. CALL LIGHT IN REACH.
--- NOTE | 2021-01-18 06:53 | NUR ---
PT UP TO BR WITH SBA AND FWW TO VOID AND HAVE LARGE SOFT BM. BACK TO BED, TESSIE WELL. VS AND I&O COMPLETE. DAILY WEIGHT OBTAINED. WARM BLANKET PROVIDED. PT DENIES FURTHER NEEDS.
--- NOTE | 2021-01-18 07:10 | NUR ---
Report received from Daphne PARDO. Pt resting in bed, A+O, on RA. States no needs at this time. Will continue plan of care.
--- NOTE | 2021-01-18 08:25 | NUR ---
Scheduled medications administered, assessment complete. VSS, I/O's complete. Pt ambulates with SBA to BR using FWW, boot in place on R foot. Pt denies pain or needs at this time. BLE edematous, pulses palpable, pt endorses CMS to be intact. On RA, A+O. Breakfast completed. Plan of care reviewed, pt agreeable. Warm blankets provided. Call light in reach.
--- NOTE | 2021-01-18 09:47 | NUR ---
Call light answered, pt requests PRN pain med for 7/10 pain in feet, administered. This RN noted pulled out IV in pt's chair, pt states "it fell out". Catheter tip intact, pt skin intact at IV site. States no further needs, call light in reach.
--- NOTE | 2021-01-18 10:30 | NUR ---
Pt resting in bed with eyes closed, resp even and unlabored. On room air, no needs identified at this time. Call light within reach.
--- NOTE | 2021-01-18 11:45 | NUR ---
Scheduled meds administered. Pt reports PRN pain medication effective. Glass on ice provided per request. Pt has no needs at this time. Call light in reach.
--- NOTE | 2021-01-18 14:17 | NUR ---
Provided patient with washcloth, refused bed bath. Vitals, Is, and Os charted accordingly. Patient C/O itching, RN notified. Call light and personal items within reach. Fresh cup of ice provided.
--- NOTE | 2021-01-18 14:28 | NUR ---
SERVICE STATION OPERATOR reports pt states itching all over, warm wash cloth provided with no relief. This RN administered scheduled meds along with PRN vistaril. Pt has no other needs at this time, will continue to monitor.
--- NOTE | 2021-01-18 16:05 | NUR ---
Rounded on patient who is resting in bed watching tv. States "feeling better", has no needs at this time, call light in reach
--- NOTE | 2021-01-18 17:32 | NUR ---
Scheduled meds administered, SS insulin provided. Pt states no pain or discomfort, no needs at this time.
--- NOTE | 2021-01-18 18:12 | NUR ---
PATIENT AWAKE IN BED WATCHING TV. VITALS AND I&OS CHARTED. FRESH CUP OF ICE PROVIDED. CALL LIGHT IN EASY REACH, NO OTHER NEEDS AT THIS TIME
--- NOTE | 2021-01-18 20:35 | NUR ---
PATIENT'S RT FOOT DRESSING'S REMAIN INTACT AND NO NEW DRAINAGE NOTED. PATIENT NEEDED NO EVENING INSULIN AND PM MEDS GIVEN AND WATERGLASS FILLED. CALL LIGHT IN REACH AND NO OTHER CARE NEEDS AT THIS TIME.
--- NOTE | 2021-01-18 22:00 | NUR ---
PATIENT RESTING QUIETLY IN BED AT THIS TIME WATCHING TV. PATIENT HAS NO CURRENT CARE NEEDS AT THIS TIME. CALL LIGHT IS IN REACH.
--- NOTE | 2021-01-18 23:15 | NUR ---
PATIENT GIVEN EVENING SLEEPING, PAIN, AND 2300 MEDS. PATIENT SPILLED ICE ALL OVER THE FLOOR AND THIS WAS CLEANED UP. PATIENT HAD NO OTHER CARE NEEDS AT THIS TIME. CALL LIGHT IN REACH.
--- NOTE | 2021-01-19 01:30 | NUR ---
PATIENT RESTING QUIETLY, EYES CLOSED, RESPIRATIONS REGULAR AND EVEN, CALL LIGHT IN REACH.
--- NOTE | 2021-01-19 03:00 | NUR ---
PATIENT RESTING QUIETLY ON HER RIGHT SIDE, EYES CLOSED, RESPIRATIONS REGULAR AND EVEN, CALL LIGHT IN REACH.
--- NOTE | 2021-01-19 04:42 | NUR ---
PATIENT CONTINUES TO REST QUIETLY ON HER LEFT SIDE, RESPIRATIONS REGULAR AND EVEN, CALL LIGHT IS IN REACH.
--- NOTE | 2021-01-19 08:51 | NUR ---
patient sitting up on edge of bed. warm washcloth offered and taken. breakfast ordered. call light with in reach. no further needs at this time.
--- NOTE | 2021-01-19 09:45 | NUR ---
PER AM MEETING AND MD UPDATE, POSSIBLE DISCHARGE HOME FOR PATIENT TODAY PENDING LAB RESULTS. PATIENT WISHES TO RETURN HOME AND DECLINES ANY OTHER DISCHARGE NEEDS. CASE MANAGEMENT STAFF AVAILABLE FOR DISCHARGE NEEDS IF REQUIRED.
--- NOTE | 2021-01-19 09:56 | NUR ---
Patient is lying in bed taking a nap, no immediate needs. Call light is within reach. Room is tidied
[2021-01-19] MEDS ORDERED: METOPROLOL SUCC25 MG PO (12:12)
[2021-01-19] MEDS ORDERED: GABAPENTIN100 MG PO (12:12)
[2021-01-19] MEDS ORDERED: ISOSORBIDE DINI20 MG PO (12:12)
[2021-01-19] MEDS ORDERED: POTASSIUM CHLO10 ME1 PO ×2 (12:12→12:35)
[2021-01-19] MEDS ORDERED: TORSEMIDE10 MG PO (12:13)
--- NOTE | 2021-01-19 13:27 | NUR ---
PT ALERT, ORIENTED AND HOPES TO DC LATER TODAY, PENDING LAB RESULTS. PT SEEMS UPBEAT, GOOD ENGAGING VISIT. GAVE BLESSING WILL FOLLOW
--- NOTE | 2021-01-19 13:30 | NUR ---
DR SLOAN IN TO SEE PT AND NEW ORDER FOR DISCHARGE IN. TOLERATING 60 G CARB DIET WELL. DENIES PAIN OR NAUSEA AT THIS TIME. DRESSING CHANGED TO RIGHT PLANTAR FOOT WOUND: CLEANED W/ WOUND CLEANSER AND GAUZE, PAINTED WITH BETADINE AND DRESSED W/ COLLAGEN AND ALLEVYN. PT REQUESTING OXYCODONE AFTER DRSG CHANGE FOR 5/10 RIGHT FOOT PAIN. PT HAS CONTACTED SON-IN-LAW FOR PICK-UP. VSS.
--- NOTE | 2021-01-19 14:44 | NUR ---
PT REPORTS SHE IS OUT OF ACCUCHECK STRIPS AT HOME AND DOES NOT KNOW BRAND OF THE ONES SHE USES. INSTRUCTIONS FROM DR SLOAN TO CONTACT PCP OR SOURCING SPECIALIST FOR BRAND AND REFILL. RAFFI ADHESION TESTER ATTEMPTED TO REACH SOURCING SPECIALIST AND LEFT MESSAGE REGARDING NEEDS FOR PRESCRIPTION REFILL. ADHESION TESTER INFORMED PT THAT THE HOSPITAL WILL CONTACT HER SOON STAFF ARE ABLE TO REACH SOURCING SPECIALIST AND PRESCRIPTION SENT TO PHARMACY. PT STATES HER DAUGHTER WILL BE ABLE TO INSTRUCTIONAL SYSTEMS DESIGNER LATER TODAY.
== END 2021-01-19 14:15 | disposition home or self-care (01) | DRG 602 ==
LOC: ED 15:19 → MS 18:32
PROVIDERS: ADMIT Internal Medicine; ATTEND Internal Medicine
DX: L03.115 Cellulitis of right lower limb (principal); K72.00 Acute and subacute hepatic failure without coma; N17.9 Acute kidney failure, unspecified; E87.2 Acidosis; B96.89 Other specified bacterial agents as the cause of diseases classified elsewhere; Z20.822 Contact with and (suspected) exposure to COVID-19; E11.51 Type 2 diabetes mellitus with diabetic peripheral angiopathy without gangrene; E11.649 Type 2 diabetes mellitus with hypoglycemia without coma; I25.10 Atherosclerotic heart disease of native coronary artery without angina pectoris; I50.9 Heart failure, unspecified; I10 Essential (primary) hypertension; F15.11 Other stimulant abuse, in remission; F32.9 Major depressive disorder, single episode, unspecified; N14.1 Nephropathy induced by other drugs, medicaments and biological substances; T36.8X5A Adverse effect of other systemic antibiotics, initial encounter; Y92.239 Unspecified place in hospital as the place of occurrence of the external cause; Z86.718 Personal history of other venous thrombosis and embolism; Z86.711 Personal history of pulmonary embolism; Z86.14 Personal history of Methicillin resistant Staphylococcus aureus infection; Z79.01 Long term (current) use of anticoagulants; Z79.899 Other long term (current) drug therapy; Z79.4 Long term (current) use of insulin
CPT/HCPCS: 36415; 71045; 80048; 80053; 80202; 81001; 83036; 83605; 83735; 85025; 87040; 87077; 87184; 93005; 93010; 96374; 97116; 97162; 99285-25; A9270-GY; C9803; J0692; J1815; J2405; J3370; J7060; Q0177; U0003

== ENCOUNTER 2021-02-05 19:51 | Emergency (ER) | payer MEDICARE, OTHER, MEDICAID ==
[~2021-02-05] VITALS: Ht 175.3 cm; Wt 97.7 kg
[~2021-02-05 19:51] MED LIST changes: +ATORVASTATIN CA40 MG PO; +ELIQUIS5 MG PO; +HYDRALAZINE HCL10 MG PO; +ISOSORBIDE DINI20 MG PO; +METOPROLOL SUCC25 MG PO; +NOVOLOG FL100 UNIT/1 SUB-Q; +POTASSIUM CHLO10 ME1 PO; +TORSEMIDE10 MG PO; +TORSEMIDE20 MG PO
--- OUTSIDE RECORDS SUMMARY | 2021-02-05 19:54 | XMS ---
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 Care History Medical/Surgical 03/24/2020 [facility] \T\middot;\T\nbsp; PATIENT WOULD BENEFIT FROM [facility]-PLEASE DISCUSS \T\middot;\T\nbsp; PLEASE CONTACT [facility]- IF PATIENT ACCEPTS SERVICES- [phone] \T\middot;\T\nbsp; [facility] CAN PROVIDE PATIENT WITH ZIPPER TRIMMER HAND AND HELP WITH COMMUNITY RESOURCES 11/26/2018 [facility] [place] CASE MANAGEMENT REFERRAL MADE- FOR FURTHER HELP- WITH CHUCKING AND SAWING MACHINE OPERATOR TO HELP PATIENT. E.D. VISIT COUNT (12 MO.) [address] TOTAL 9 NOTE: Visits indicate total known visits. ED/C VISIT TRACKING (12 MO.) 02/05/2021 19:51 [facility] TYPE: Emergency COMPLAINT: - RIGHT LEG PAIN 01/14/2021 15:20 [facility] TYPE: Emergency COMPLAINT: - CHEST PAIN, NAUSEA 09/19/2020 09:57 [facility] TYPE: Emergency DIAGNOSES: - Other disorder of circulatory system - Other stimulant abuse, uncomplicated - Heart failure, unspecified - Leg Pain 09/19/2020 05:12 [facility] TYPE: Emergency COMPLAINT: - RT FOOT PAIN DIAGNOSES: - Atherosclerotic heart disease of [place] coronary artery without angina pectoris - Type 2 diabetes mellitus with foot ulcer - Pain in right foot - Cellulitis of right lower limb - Other mcfp (current) drug therapy - Cellulitis of left lower limb - Non-pressure chronic ulcer of other part of right foot with unspecified severity - exterminator helper (current) use of insulin - Heart failure, unspecified - Other disorder of circulatory system 09/13/2020 20:38 [facility] [place] TYPE: Emergency DIAGNOSES: - Other disorder of circulatory system - INFECTION IN R LEG - Non-pressure chronic ulcer of other part of right foot with unspecified severity - Type 2 diabetes mellitus with foot ulcer 09/06/2020 16:32 [facility] [place] TYPE: Emergency COMPLAINT: - SWELLING IN FEET DIAGNOSES: - Heart failure, unspecified - Other m[facility] (current) drug therapy - Radiographic dye allergy status - Type 2 diabetes mellitus without complications - senior care (current) use of insulin - Patient's noncompliance with other medical treatment and regimen 03/25/2020 22:25 [facility] [place] TYPE: Emergency DIAGNOSES: - Cellulitis of left lower limb - BILAT FOOT INFECTION 03/23/2020 19:11 [facility] TYPE: Emergency COMPLAINT: - SWOLLEN/REDNESS IN BOTH FEET DIAGNOSES: - Cellulitis of left lower limb - Atherosclerotic heart disease of [place] coronary artery without angina pectoris - senior care (current) use of insulin - Heart failure, unspecified - Radiographic dye allergy status - Elevated white blood cell count, unspecified - Type 2 diabetes mellitus without complications - Other keno terminal operator (current) drug therapy - Major depressive disorder, [...] Type 2 diabetes mellitus without complications - exterminator helper (current) use of insulin INPATIENT VISIT TRACKING (12 MO.) 01/14/2021 18:32 [facility] [place] TYPE: Medical Surgical COMPLAINT: - R LEG CELLULITIS DIAGNOSES: - Adverse effect of other systemic antibiotics, initial encounter - Heart failure, unspecified - senior care (current) use of insulin - Cellulitis of right lower limb - Atherosclerotic heart disease of [place] coronary artery without angina pectoris - Other mcfp (current) drug therapy - Other specified bacterial agents as the cause of diseases classified elsewhere - Essential (primary) hypertension - Nephropathy induced by other drugs, medicaments and biological substances - Unspecified place in hospital as the place of occurrence of the external cause - Acidosis - Acute kidney failure, unspecified - Personal history of Methicillin resistant Staphylococcus aureus infection - Other stimulant abuse, in remission - Personal history of pulmonary embolism - senior care (current) use of anticoagulants - Type 2 diabetes mellitus with diabetic peripheral angiopathy without gangrene - Acute and subacute hepatic failure without coma - Major depressive disorder, single episode, unspecified - Personal history of other venous thrombosis and embolism - Type 2 diabetes mellitus with hypoglycemia without coma 09/19/2020 09:57 [facility] TYPE: Internal Medicine DIAGNOSES: - Atherosclerotic heart disease of [place] coronary artery with other forms of angina pectoris - Encounter for palliative care - Other specified counseling - Anxiety disorder, unspecified - Gangrene, not elsewhere classified - Candidiasis of skin and nail - Other malaise - Alkalosis - Heart failure, unspecified - Acute kidney failure, unspecified - Non-pressure chronic ulcer of other part of right foot with unspecified severity - Elevated white blood cell count, unspecified - Acidosis - Type 2 diabetes mellitus with hyperglycemia - Other mcfp (current) drug therapy - Hyperkalemia - Chronic kidney disease, stage 3 unspecified - Hypokalemia - Generalized edema - Edema, unspecified - Major depressive disorder, single episode, unspecified - Peripheral vascular disease, unspecified - Other stimulant abuse, uncomplicated - Essential (primary) hypertension - Fluid overload, unspecified - Other disorder of circulatory system - Chronic kidney disease, unspecified - exterminator helper (current) use of insulin - Chronic systolic (congestive) heart failure - Hypomagnesemia - Cellulitis of right lower limb [email or web address]
[2021-02-05] MEDS ORDERED: LEVEMIR FL100 UNIT/2 SUB-Q (20:04)
[2021-02-05] MEDS ORDERED: POTASSIUM CHLO10 ME1 PO (20:04)
[2021-02-05] MEDS ORDERED: NOVOLOG FL100 UNIT/1 SUB-Q (20:04)
[2021-02-05] MEDS ORDERED: CEFDINIR300 MG PO (22:30)
[2021-02-05] MEDS ORDERED: BACTRIM DS TAB1 EACH PO (22:30)
== END 2021-02-05 23:00 | disposition home or self-care (01) ==
LOC: ED 19:51
DX: L03.115 Cellulitis of right lower limb (principal); E11.9 Type 2 diabetes mellitus without complications; I50.9 Heart failure, unspecified; I25.2 Old myocardial infarction; I25.10 Atherosclerotic heart disease of native coronary artery without angina pectoris; Z79.899 Other long term (current) drug therapy; Z79.4 Long term (current) use of insulin
CPT/HCPCS: 73590; 80053; 85025; 99283-25

== ENCOUNTER 2021-03-01 07:49 | Inpatient (IN) | payer MEDICARE, OTHER, MEDICAID ==
[~2021-03-01] VITALS: Ht 175.3 cm; Wt 96.1 kg
[~2021-03-01 07:49] MED LIST changes: +CEFDINIR300 MG PO; +LEVEMIR FL100 UNIT/2 SUB-Q
--- OUTSIDE RECORDS SUMMARY | 2021-03-01 07:56 | XMS ---
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 Care History Medical/Surgical 03/24/2020 [facility] \T\middot;\T\nbsp; PATIENT WOULD BENEFIT FROM [facility]-PLEASE DISCUSS \T\middot;\T\nbsp; PLEASE CONTACT [facility]- IF PATIENT ACCEPTS SERVICES- [phone] \T\middot;\T\nbsp; [facility] CAN PROVIDE PATIENT WITH MARKETING AND DEVELOPMENT COORDINATOR AND HELP WITH COMMUNITY RESOURCES E.D. VISIT COUNT (12 MO.) [address] [place] [address] DANIEL Rendon TOTAL 10 NOTE: Visits indicate total known visits. ED/C VISIT TRACKING (12 MO.) 03/01/2021 07:49 [facility] [place] TYPE: Emergency COMPLAINT: - GLF, ALTERED LOC 02/05/2021 19:51 [facility] [place] TYPE: Emergency COMPLAINT: - RIGHT LEG PAIN DIAGNOSES: - 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 - Heart failure, unspecified - Cellulitis of right lower limb - Old myocardial infarction - Type 2 diabetes mellitus without complications - Atherosclerotic heart disease of [place] coronary artery without angina pectoris - Other parts counterman (current) drug therapy 01/14/2021 15:[address] [facility] [place] TYPE: Emergency COMPLAINT: - CHEST PAIN, NAUSEA 09/19/2020 09:57 [facility] TYPE: Emergency DIAGNOSES: - Other disorder of circulatory system - Other stimulant abuse, uncomplicated - Heart failure, unspecified - Leg Pain 09/19/2020 05:12 [facility] [place] TYPE: Emergency COMPLAINT: - RT FOOT PAIN DIAGNOSES: - Atherosclerotic heart disease of [place] coronary artery without angina pectoris - Type 2 diabetes mellitus with foot ulcer - Pain in right foot - Cellulitis of right lower limb - Other parts counterman (current) drug therapy - Cellulitis of left lower limb - Non-pressure chronic ulcer of other part of right foot with unspecified severity - group home (current) use of insulin - Heart failure, unspecified - Other disorder of circulatory system 09/13/2020 20:38 [facility] [place] TYPE: Emergency DIAGNOSES: - Other disorder of circulatory system - INFECTION IN R LEG - Non-pressure chronic ulcer of other part of right foot with unspecified severity - Type 2 diabetes mellitus with foot ulcer 09/06/2020 16:32 [facility] [place] TYPE: Emergency COMPLAINT: - SWELLING IN FEET DIAGNOSES: - Heart failure, unspecified - Other fdc (current) drug therapy - Radiographic dye allergy status - Type 2 diabetes mellitus without complications - group home (current) use of insulin - Patient's noncompliance with other medical treatment and regimen 03/25/2020 22:25 [facility] [place] TYPE: Emergency DIAGNOSES: - Cellulitis of left lower limb - BILAT FOOT INFECTION 03/23/2020 19:11 [facility] [place] TYPE: Emergency COMPLAINT: - SWOLLEN/REDNESS IN BOTH FEET DIAGNOSES: - Cellulitis of left lower limb - Atherosclerotic heart disease of [place] coronary artery without angina pectoris - 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 - Heart failure, unspecified - Radiographic dye allergy status - Elevated white blood cell count, unspecified - Type 2 diabetes mellitus without complications - Other parts counterman (current) drug therapy - Major depressive disorder, [...] Type 2 diabetes mellitus without complications - 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 INPATIENT VISIT TRACKING (12 MO.) 01/14/2021 18:32 [facility] [place] TYPE: Medical Surgical COMPLAINT: - R LEG CELLULITIS DIAGNOSES: - Adverse effect of other systemic antibiotics, initial encounter - Heart failure, unspecified - 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 - Cellulitis of right lower limb - Atherosclerotic heart disease of [place] coronary artery without angina pectoris - Other parts counterman (current) drug therapy - Other specified bacterial [...] - Personal history of pulmonary embolism - group home (current) use of anticoagulants - Type 2 diabetes mellitus with diabetic peripheral angiopathy without gangrene - Acute and subacute hepatic failure without coma - Major depressive disorder, single episode, unspecified - Personal history of other venous thrombosis and embolism - Type 2 diabetes mellitus with hypoglycemia without coma 09[facility]19/2020 09:[facility] DIAGNOSES: - Atherosclerotic heart disease of [place] coronary artery with other forms of angina [...] 2 diabetes mellitus with hyperglycemia - Other parts counterman (current) drug therapy - Hyperkalemia - Chronic kidney disease, stage 3 unspecified - Hypokalemia - Generalized edema - Edema, unspecified - Major depressive disorder, single episode, unspecified - Peripheral vascular disease, unspecified - Other stimulant abuse, uncomplicated - Essential (primary) hypertension - Fluid overload, unspecified - Other disorder of circulatory system - Chronic kidney disease, unspecified - 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 - Chronic systolic (congestive) heart failure - Hypomagnesemia - Cellulitis of right lower limb [email or web address]
[2021-03-01] MEDS ORDERED: ATORVASTATIN CA40 MG PO (08:12)
[2021-03-02] MEDS ORDERED: LEVEMIR FL100 UNIT/2 SUB-Q (12:20)
[2021-03-02] MEDS ORDERED: NOVOLOG FL100 UNIT/1 SUB-Q (12:20)
[2021-03-02] MEDS ORDERED: ISOSORBIDE DINI20 MG PO (12:37)
[2021-03-02] MEDS ORDERED: TOPROL XL25 MG PO (12:38)
[2021-03-02] MEDS ORDERED: TORSEMIDE10 MG PO (12:40)
--- NOTE | 2021-03-04 08:58 | EKG ---
[facility] [address] [place] [address] Signed Sinus rhythm with 1st degree AV block with premature supraventricular complexes and with occasional premature ventricular complexes Left axis deviation Left bundle branch block Abnormal ECG When compared with ECG of 14-JAN-2021 15:31, premature ventricular complexes are now present premature supraventricular complexes are now present Vent. rate has decreased BY 36 BPM Nonspecific T wave abnormality no longer evident in Anterior leads Confirmed by ISIS SLOAN MD ([id number]) on 03/04/2021 8:58:36 AM Electronically Signed By: ISIS SLOAN MD 03/04/21 0858 PATIENT NAME: YOMAIRA TALLEY Electrocardiogram DATE OF : 53 PHYSICIAN: ISIS SLOAN MD REPORT #: [id number] REPORT IS CONFIDENTIAL AND NOT TO BE RELEASED WITHOUT AUTHORIZATION
== END 2021-03-02 13:55 | disposition home or self-care (01) | DRG 638 ==
LOC: ED 07:49 → CCU 12:18
PROVIDERS: ADMIT Internal Medicine; ATTEND Internal Medicine
PROC: 5A09357 Assistance with Respiratory Ventilation, Less than 24 Consecutive Hours, Continuous Positive Airway Pressure (ICD-10-PCS; principal; 2021-03-01)
DX: E11.649 Type 2 diabetes mellitus with hypoglycemia without coma (principal); L03.115 Cellulitis of right lower limb; Z20.822 Contact with and (suspected) exposure to COVID-19; I25.10 Atherosclerotic heart disease of native coronary artery without angina pectoris; I50.9 Heart failure, unspecified; I10 Essential (primary) hypertension; E11.51 Type 2 diabetes mellitus with diabetic peripheral angiopathy without gangrene; I25.2 Old myocardial infarction; Z79.899 Other long term (current) drug therapy; G47.31 Primary central sleep apnea; Z86.718 Personal history of other venous thrombosis and embolism; Z86.711 Personal history of pulmonary embolism; Z90.49 Acquired absence of other specified parts of digestive tract; Z98.890 Other specified postprocedural states; Z79.4 Long term (current) use of insulin
CPT/HCPCS: 51702; 70450; 71045; 73630; 80053; 80500; 81001; 82553; 82803; 83605; 83735; 84484; 85025; 93005; 93010; 94660; 99285-25; C9113; J0696; J1815; J2310; J3480; J7030; U0003

== ENCOUNTER → 2021-05-01 | Emergency (ER) | payer MEDICARE, OTHER, MEDICAID ==
[~2021-05-01] VITALS: Ht 175.3 cm; Wt 95.8 kg
[~2021-05-01] MED LIST changes: +TOPROL XL25 MG PO
--- OUTSIDE RECORDS SUMMARY | 2021-05-01 20:14 | XMS ---
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 Care History Medical/Surgical 03/24/2020 [facility] \T\middot;\T\nbsp; PATIENT WOULD BENEFIT FROM [facility]-PLEASE DISCUSS \T\middot;\T\nbsp; PLEASE CONTACT [facility]- IF PATIENT ACCEPTS SERVICES- [phone] \T\middot;\T\nbsp; [facility] CAN PROVIDE PATIENT WITH REVENUE STAMPER AND HELP WITH COMMUNITY RESOURCES E.D. VISIT COUNT (12 MO.) [address] [place] [address] DANIEL Rendon TOTAL 10 NOTE: Visits indicate total known visits. ED/C VISIT TRACKING (12 MO.) 05/01/2021 20:12 [facility] [place] TYPE: Emergency COMPLAINT: - DIFFICULTY BREATHING 05/01/2021 10:19 [facility] [place] TYPE: Emergency DIAGNOSES: - NOT FEELING WELL INFECTION IN BOTH LEGS - Cellulitis of unspecified part of limb - COVID-19 04/17/2021 11:14 [facility] [place] TYPE: Emergency DIAGNOSES: - Cellulitis of right lower limb - cellulitis 03/01/2021 07:49 [facility] [place] TYPE: Emergency COMPLAINT: - GLF, ALTERED LOC 02/05/2021 19:51 [facility] [place] TYPE: Emergency COMPLAINT: - RIGHT LEG PAIN DIAGNOSES: - [facility] (current) use of insulin - Heart failure, unspecified - Cellulitis of right lower limb - Old myocardial infarction - Type 2 diabetes mellitus without complications - Atherosclerotic heart disease of [place] coronary artery without angina pectoris - Other termite treater (current) drug therapy 01/14/2021 15:20 [facility] [place] TYPE: Emergency COMPLAINT: - CHEST PAIN, NAUSEA 09/19/2020 09:57 [facility] TYPE: Emergency DIAGNOSES: - Other disorder of circulatory system - Other stimulant abuse, uncomplicated - Heart failure, unspecified - Leg Pain 09/19/2020 05:12 [facility] [place] TYPE: Emergency COMPLAINT: - RT FOOT PAIN DIAGNOSES: - Atherosclerotic heart disease of [place] coronary artery without angina pectoris - Type 2 diabetes mellitus with foot ulcer - Pain in right foot - Cellulitis of right lower limb - Other skilled nursing (current) drug therapy - Cellulitis of left lower limb - Non-pressure chronic ulcer of other part of right foot with unspecified severity - 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 - Heart failure, unspecified - Other disorder of circulatory system 09/13/2020 20:38 [facility] [place] TYPE: Emergency DIAGNOSES: - Other disorder of circulatory system - INFECTION IN R LEG - Non-pressure chronic ulcer of other part of right foot with unspecified severity - Type 2 diabetes mellitus with foot ulcer 09/06/2020 16:32 [facility] [place] TYPE: Emergency COMPLAINT: - SWELLING IN FEET DIAGNOSES: - Heart failure, unspecified - Other skilled nursing (current) drug therapy - Radiographic dye allergy status - Type 2 diabetes mellitus without complications - 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 - Patient's noncompliance with other medical treatment and regimen INPATIENT VISIT TRACKING (12 MO.) 04/17/2021 11:14 [facility] [place] TYPE: Medical Surgical DIAGNOSES: - Cellulitis of right lower limb 03/01/2021 12:18 [facility] [place] TYPE: Critical Care COMPLAINT: - HYPOGLYCEMIA, TROPONIN DIAGNOSES: - Acquired absence of other specified parts of digestive tract - Other specified postprocedural states - Atherosclerotic heart disease of [place] coronary artery without angina pectoris - Old myocardial infarction - Primary central sleep apnea - Heart failure, unspecified - Type 2 diabetes mellitus with diabetic peripheral angiopathy without gangrene - [facility] (current) use of insulin - Personal history of pulmonary embolism - Other skilled nursing (current) drug therapy - Old myocardial infarction - Essential (primary) hypertension - Personal history of other venous thrombosis and embolism - Cellulitis of right lower limb - Type 2 diabetes mellitus with diabetic peripheral angiopathy without gangrene - Atherosclerotic heart disease of [place] coronary artery without angina pectoris - Personal history of pulmonary embolism - Cellulitis of right lower limb - Other specified postprocedural states - [facility] (current) use of insulin - Type 2 diabetes mellitus with hypoglycemia without coma - Acquired absence of other specified parts of digestive tract - Heart failure, unspecified - Essential (primary) hypertension - Personal history of other venous thrombosis and embolism - Primary central sleep apnea - Other skilled nursing (current) drug therapy 01/14/2021 18:32 [facility] [place] TYPE: Medical Surgical COMPLAINT: - R LEG CELLULITIS DIAGNOSES: - Adverse effect of other systemic antibiotics, initial encounter - Heart failure, unspecified - 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 - Cellulitis of right lower limb - Atherosclerotic heart disease of [place] coronary artery without angina pectoris - Other termite treater (current) drug therapy - Other specified bacterial [...] - Personal history of pulmonary embolism - [facility] (current) use of anticoagulants - Type 2 diabetes mellitus with diabetic peripheral angiopathy without gangrene - Acute and subacute hepatic failure without coma - Major depressive disorder, single episode, unspecified - Personal history of other venous thrombosis and embolism - Type 2 diabetes mellitus with hypoglycemia without coma 09/19/2020 09:57 [facility] TYPE: Internal Medicine DIAGNOSES: - Atherosclerotic heart disease of [place] coronary artery with other forms of angina [...] 2 diabetes mellitus with hyperglycemia - Other termite treater (current) drug therapy - Hyperkalemia - Chronic kidney disease, stage 3 unspecified - Hypokalemia - Generalized edema - Edema, unspecified - Major depressive disorder, single episode, unspecified - Peripheral vascular disease, unspecified - Other stimulant abuse, uncomplicated - Essential (primary) hypertension - Fluid overload, unspecified - Other disorder of circulatory system - Chronic kidney disease, unspecified - [facility] (current) use of insulin - Chronic systolic (congestive) heart failure - Hypomagnesemia - Cellulitis of right lower limb [email or web address]
--- NOTE | 2021-05-02 13:59 | EKG ---
[facility] [address] [place] [address] Signed Normal sinus rhythm Left axis deviation Left bundle branch block Abnormal ECG When compared with ECG of 01-MAR-2021 08:38, premature ventricular complexes are no longer present premature supraventricular complexes are no longer present MD interval has decreased Vent. rate has increased BY 31 BPM Confirmed by ISIS SLOAN MD ([id number]) on 05/02/2021 1:58:47 PM Electronically Signed By: ISIS SLOAN MD 05/02/21 1359 PATIENT NAME: YOMAIRA TALLEY Electrocardiogram DATE OF : 53 PHYSICIAN: ISIS SLOAN MD REPORT #: [id number] REPORT IS CONFIDENTIAL AND NOT TO BE RELEASED WITHOUT AUTHORIZATION
== END | disposition home or self-care (01) ==
LOC: ED 20:11
DX: U07.1 COVID-19 (principal); L03.115 Cellulitis of right lower limb; I25.2 Old myocardial infarction; E11.621 Type 2 diabetes mellitus with foot ulcer; L97.519 Non-pressure chronic ulcer of other part of right foot with unspecified severity; I25.10 Atherosclerotic heart disease of native coronary artery without angina pectoris; Z86.711 Personal history of pulmonary embolism; Z79.4 Long term (current) use of insulin; Z79.01 Long term (current) use of anticoagulants; Z79.899 Other long term (current) drug therapy
CPT/HCPCS: 71045; 80053; 83605; 83735; 83880; 84484; 85025; 87040; 93005; 93010; 99284-25